=== PATIENT | male | born 1950 | race Caucasian/White ===

== ENCOUNTER 2019-02-05 13:00 | Observation (INO) | payer OTHER ==
[~2019-02-05] VITALS: Ht 182.9 cm; Wt 75.4 kg
[~2019-02-05 13:00] MED LIST: ACET325; AMOCLA875 PO; Advil200 M1; Clonazepam0.25 MG; HYDACE5 PO; MELO7.5; OXYACE5T PO; PENVK500 PO; RXOXYACE PO; RXPENVK250 PO; [UNRECOGNIZED DRUG - REMARK]
[2019-02-05 13:34] LABS: BASOPHILS ABSOLUTE AUTO 0.08 K/mm3 (0.00-0.23); BASOPHILS PERCENT AUTO 1 % (0-2); EOSINOPHILS ABSOLUTE AUTO 0.15 K/mm3 (0.00-0.68); EOSINOPHILS PERCENT AUTO 2 % (0-6); Hematocrit 45.7 % (37.0-53.0); Hemoglobin 15.1 g/dL (13.5-17.5); IMMATURE GRAN ABSOLUTE AUTO 0.05 K/mm3 (0.00-0.10); IMMATURE GRAN PERCENT AUTO 1 % (0-1); LYMPHOCYTES ABSOLUTE AUTO 1.04 K/mm3 (0.84-5.20); LYMPHOCYTES PERCENT AUTO 14 % (21-46); MONOCYTES ABSOLUTE AUTO 0.62 K/mm3 (0.16-1.47); MONOCYTES PERCENT AUTO 8 % (4-13); Mean Corpuscular Volume 91 fL (80-100); Mean Platelet Volume 10.2 fL (9.1-12.4); NEUTROPHILS ABSOLUTE AUTO 5.52 K/mm3 (1.96-9.15); NEUTROPHILS PERCENT AUTO 74 % (41-73); Platelet Count 241 K/mm3 (150-400); RDW Coefficient Variation 12.1 % (11.7-14.2); RDW Standard Deviation 40.3 fL (35.1-46.3); Red Blood Cell Count 5.03 M/mm3 (4.30-5.90); White Blood Cell Count 7.46 K/mm3 (4.00-11.30)
[2019-02-05 13:59] LABS: Alanine Aminotransfer (ALT/SGP 31 U/L (12-78); Albumin, Blood 3.6 g/dL (3.4-5.0); Albumin/Globulin Ratio 1.1 (0.8-1.8); Alk Phos 97 U/L (50-136); Anion Gap 3 mmol/L (6-16); Aspartate Aminotrans (AST/SGOT 15 U/L (12-37); Bilirubin, Total 0.3 mg/dL (0.1-1.0); Blood Urea Nitrogen 16 mg/dL (8-24); Bun/Creatinine Ratio 16.6 (12.0-20.0); CO2, Blood 30 mmol/L (21-32); Calcium, Blood 8.4 mg/dL (8.5-10.1); Chloride, Blood 109 mmol/L (98-108); Creatinine, Blood 0.96 mg/dL (0.60-1.20); Globulin, Blood 3.4 g/dL (2.2-4.0); Glomerular Filtration Rate >60 (60-); Glucose, Blood 83 mg/dL (70-99); Potassium, Blood 4.1 mmol/L (3.5-5.5); Sodium, Blood 142 mmol/L (136-145); Troponin I <0.015 ng/mL (0.000-0.040)
[2019-02-05] MEDS ORDERED: CLON.5 PO (16:38)
[2019-02-06 02:09] LABS: CHOL/HDL RATIO 2.4; Cholesterol 142 mg/dL (50-200); HDL Cholesterol 60 mg/dL (>39); LDL/HDL RATIO 1.2; Low Density Lipoprotein Chol 73 mg/dL (0-110); Triglycerides 44 mg/dL (30-160); Very Low Density Lipoprot Chol 8 mg/dL (6-32)
--- NOTE | 2019-02-06 06:26 | NUR ---
SHIFT SUMMARY PATIENT STAYED IN BED AND SLEPT MOST OF THE NIGHT. AROUND 0230 HE WOKE UP COMPLAINING OF A HEADACHE, HOWEVER HE DID NOT HAVE ANY ORDERS FOR PRN PAIN MEDICATIONS. AN ORDER FOR PRN TYLENOL WAS OBTAINED, JUST WAITING FOR IT TO BE VERIFIED BY THE PHARMACY. PATIENT IS CURRENTLY SLEEPING. BED IN LOWEST POSITION WITH WHEELS LOCKED. CALL LIGHT AND BELONGINGS WITHIN REACH. REPORT GIVEN TO ONCHAYDEE WELLINGTON.
[2019-02-06] MEDS ORDERED: Ipratropium Bro15 ML ×2 (06:32→06:33)
[2019-02-06] MEDS ORDERED: ACET325 PO (10:55)
[2019-02-06] MEDS ORDERED: NITR.4SL SL (10:56)
--- NOTE | 2019-02-06 11:38 | NUR ---
DISCHARGE INSTRUCTIONS REVIEWED WITH PATIENT BOTH VERBALLY AND A PRINTED COPY. EDUCATIONAL MATERIAL GIVEN REGARDING CHEST PAIN. IV AND TELE REMOVED. ALL QUESTIONS ANSWERED. PATIENT DISCHARGED HOME AT 1128.
--- NOTE | 2019-02-06 13:53 | NUR ---
DR SHORT GAVE THIS RN RX FOR HCTZ 25 MG PO DAILY DISP 30 NO REFILLS. CALLED TO [facility] [place]. MESSAGE LEFT ON PTS VOICEMAIL TO FAMILY PROGRAM SPECIALIST NEW RX.
== END 2019-02-06 11:33 | disposition home or self-care (01) ==
LOC: ER 13:00 → MEDS 13:01
PROVIDERS: Nurse Practitioner Acute Care; Physician Assistant; ADMIT Family Medicine
DX: R07.9 Chest pain, unspecified (principal); I16.0 Hypertensive urgency; I10 Essential (primary) hypertension; M19.90 Unspecified osteoarthritis, unspecified site; G47.00 Insomnia, unspecified; Z66 Do not resuscitate; Z79.899 Other long term (current) drug therapy
CPT/HCPCS: 36415; 71046; 80053; 80061; 84484; 85025; 93005; 93010; 93306; 99285-25; G0378

== ENCOUNTER 2019-08-08 22:19 | Emergency (ER) | payer OTHER ==
[~2019-08-08] VITALS: Ht 182.9 cm; Wt 77.1 kg
[~2019-08-08 22:19] MED LIST changes: +ACET325 PO; +CLON.5 PO; +Ipratropium Bro15 ML; +NITR.4SL SL
[2019-08-08] MEDS ORDERED: ERYT.5TO (22:44)
[2019-08-08] MEDS ORDERED: Flonase 0.05% N16 GM (22:44)
[2019-08-08] MEDS ORDERED: PSEU120ER PO (22:44)
[2019-08-08] MEDS ORDERED: KETOROLAC TROMET5 ML TOP (23:38)
== END 2019-08-09 00:04 | disposition home or self-care (01) ==
LOC: ER 22:19
DX: S05.01XA Injury of conjunctiva and corneal abrasion without foreign body, right eye, initial encounter (principal); X58.XXXA Exposure to other specified factors, initial encounter
CPT/HCPCS: 99283